=== PATIENT | female | born 1980 | race Caucasian/White ===

== ENCOUNTER 2018-01-08 05:31 | Day surgery (SDC) | payer OTHER ==
[2018-01-04 10:52] LABS: HEMATOCRIT 41.2 % (36.0-47.0); MEAN CORPUSCULAR HEMOGLOBIN 30.2 pg (27.0-33.4); MEAN CORPUSCULAR HGB CONC 33.9 g/dL (32.0-36.0); MEAN CORPUSCULAR VOLUME 89 fl (80-97); PLATELET COUNT 213 10^3/uL (150-450); RED BLOOD COUNT 4.64 10^6/uL (3.72-5.28); RED CELL DISTRIBUTION WIDTH 12.3 % (11.5-14.0); WHITE BLOOD COUNT 7.1 10^3/uL (4.0-10.5)
[2018-01-04 11:12] LABS: ANION GAP 12 (5-19); BLOOD UREA NITROGEN 11 mg/dL (7-20); CALCIUM 10.2 mg/dL (8.4-10.2); CARBON DIOXIDE 24 mmol/L (22-30); CHLORIDE 105 mmol/L (98-107); GLUCOSE 80 mg/dL (75-110); POTASSIUM 4.1 mmol/L (3.6-5.0); SODIUM 141.2 mmol/L (137-145)
[~2018-01-08 05:31] MED LIST: CEFAZOLIN SODIUM 2 GM in DEXTROSE 5%-WATER 100 ML IV PRN; CEFAZOLIN SODIUM 2 GM in NORMAL SALINE 100 ML IV PRN; LACTATED RINGERS 1000 ML IV PRN; LIDOCAINE 0.5% INJ-PF (5 MG/ML) 50 ML SDV SUBCUT PRN
[2018-01-08] MEDS ORDERED: FENTANYL CITRATE INJ/PF 250 MCG/5 ML AMPULE ONE (06:45)
[2018-01-08] MEDS ORDERED: FENTANYL CITRATE INJ/PF 100 MCG/2 ML AMPUL ONE (06:46)
[2018-01-08] MEDS ORDERED: PROPOFOL INJ 200 MG/20 ML VIAL IV ONE (06:46)
[2018-01-08] MEDS ORDERED: MIDAZOLAM 2 MG/2 ML INJ ONE (06:46)
[2018-01-08] MEDS ORDERED: ACETAMINOPHEN 100 ML IV ONE (06:46)
[2018-01-08] MEDS ORDERED: BUPIVACAINE HCL 0.25 % INJ/PF (2.5 MG/1 ML) 30 ML VIAL ONE (07:12)
[2018-01-08] MEDS ORDERED: METHYLENE BLUE 50 MG/10 ML AMPULE ONE (07:12)
[2018-01-08] MEDS ORDERED: CEFAZOLIN INJ 1 GM VIAL ONE (08:10)
[2018-01-08] MEDS ORDERED: FENTANYL CITRATE INJ/PF 100 MCG/2 ML AMPUL IV PRN ×4 (08:28→10:34)
[2018-01-08] MEDS ORDERED: MEPERIDINE HCL/PF INJ 25 MG/1 ML DISP.SYRIN IV PRN (08:28)
[2018-01-08] MEDS ORDERED: PROMETHAZINE HCL INJ 25 MG/1 ML VIAL IV PRN ×2 (08:28→10:35)
[2018-01-08] MEDS ORDERED: DIPHENHYDRAMINE HCL 50 MG/ML VIAL IV PRN (08:28)
[2018-01-08] MEDS: FENTANYL CITRATE INJ/PF 100 MCG/2 ML AMPUL ONE ×4 (10:33→11:05)
[2018-01-08] MEDS ORDERED: MORPHINE SULFATE 10 MG/ML INJ IV PRN (10:33)
[2018-01-08] MEDS ORDERED: ONDANSETRON HCL INJ/PF 4 MG/2 ML SDV IV PRN (10:34)
[2018-01-08] MEDS ORDERED: KETOROLAC TROMETHAMINE INJ/PF 30 MG/1 ML SDV ONE (10:41)
[2018-01-08] MEDS ORDERED: OXYCODONE HCL IR 5 MG TABLET PO PRN (10:58)
[2018-01-08] MEDS ORDERED: NORMAL SALINE 1000 ML 1,000 ML IV ONE (11:30)
[2018-01-08] MEDS: OXYCODONE-ACETAMINOPHEN 5-325 MG TABLET PO PRN ×2 (12:27→16:55)
--- NOTE | 2018-01-08 13:09 | OPERATIVE REPORT E ---
Operative Report NAME: ALEXI FRANK : 1980 AGE: 37Y DATE OF SURGERY: 01/08/2018 ROOM: PREOPERATIVE DIAGNOSES: 1. Chronic pelvic pain. 2. Abnormal uterine bleeding unresponsive to medical therapy. 3. Previous x3. 4. Previous history of X-flap vertical midline. POSTOPERATIVE DIAGNOSES: 1. Chronic pelvic pain. 2. Abnormal uterine bleeding unresponsive to medical therapy. 3. Previous x3. 4. Previous history of X-flap vertical midline. OPERATION: 1. Robotic total laparoscopic hysterectomy. 2. Bilateral salpingectomy remnants. 3. Cystoscopy. 4. Extensive lysis of adhesions. SURGEON: Lucille Walters M.D. ASSITSANT: Ren Salazar M.D. ANESTHESIA: General. ESTIMATED BLOOD LOSS: 100. INTRAVENOUS FLUIDS: 1800 mL normal saline. URINE OUTPUT: 300 mL clear urine. COMPLICATIONS: None. INDICATION: The patient is a 37-year-old 3, para 3-0-0-3, with a history of previous x3 and X-flap vertical midline who presented to my clinic initially with chronic pelvic pain and abnormal uterine bleeding unresponsive to previous medical therapy and also history of HONEY-2. Patient desired definitive surgical management, declined all other interventions including a LEEP or a cold knife conization for her HONEY-2. Patient was counseled extensively on the procedure risks including, but not limited to bleeding, infection, injury to surrounding organs and tissue including bowel or bladder, and the need of exploratory laparotomy in case there is bleeding at the surgical procedure that cannot be identified or controlled via laparoscopy. The patient agreed and consented to the procedure, understood and agreed to proceed to the operating room. FINDINGS: Extensive inferior abdominal wall omental adhesions to the anterior abdominal wall. The uterus was seen to be soft, boggy, consistent with adenomyosis. The right ovary appeared to be normal. There was a right paratubal cyst. The patient was status post bilateral tubal ligation from previous procedures. Left fallopian tube remnants appeared to be normal and the left ovary appeared to be slightly enlarged with multiple follicular cysts. PROCEDURE: The patient was taken to the operating room. General anesthesia was induced without difficulty. The patient was placed in the dorsal lithotomy position, was sterilely prepped and draped in the usual sterile fashion. A Yelena Hugger was placed and obtained control of core body temperature. A Siegel catheter was placed in the bladder. A single-tooth tenaculum was placed in the cervix to grasp the cervix. The cervix was dilated with a cervical os dilator. The uterus was sounded to approximately 7-8 cm. Two folrmp-op-barfb stitches around 3 and 9 o'clock were placed for anchoring sutures before placing the VCare and the VCare manipulator was attached to the uterus with a cervical ring and anchored to the stitches on the right and left. A weighted speculum single-tooth tenaculum were removed. A horizontal supraumbilical incision was performed after insertion of the Veress needle on the left upper quadrant at Sewell's point for insufflation of the abdomen. Of course, the Veress needle was introduced after performing the appropriate drop test and the abdomen was insufflated with carbon dioxide until pneumoperitoneum was established. The Veress needle was of course removed and the supraumbilical incision was slightly extended. The 12 mm trocar inserted and placed in the abdominal cavity. Visualization of the abdomen revealed the above findings. The right lower quadrant port was inserted under direct visualization. It was free of omentum adhesions. The right upper quadrant medical office assistant port was inserted under direct visualization. The left lower port was not inserted at this time due to anterior omental adhesions. At this point, anterior omental adhesions were taken down. A separate camera was introduced via one of the other ports and using LigaSure cauterizing and transecting all the omental fat attaching it as close as to the anterior abdominal wall. Bowel was freed over the omental adhesions. After taking down all the extensive anterior omental adhesions and performing the lysis of adhesions, the robot camera was introduced back into the main port and then the left lower quadrant port was introduced under direct visualization. At this point, the robot was docked and then attention was paid to the ureters bilaterally and the ureters were both well away from the surgical field at all times. At this point, visualizing the ureters and making sure they were away from the surgical field, the right fimbriated end of the fallopian tube was grasped, cauterized and transected along the mesosalpinx all the way to the cornual region. The right round ligament was cauterized and transected all the way down to the level of the uterus. A right bladder flap was created on the contralateral side which was performed in a similar fashion where the fimbriated end of the fallopian tube was grasped, cauterized and transected along the mesosalpinx all the way to the cornual region. The left round ligament was cauterized and transected all the way down to the level of the uterus. The left side of the bladder flap was created and met the right side of the bladder flap. At this point, the bladder was pushed all the way down after appropriate dissection making sure it was far away from the colpotomy site. The left and right uterine blood vessels were cauterized appropriately and transected. At this point, the anterior colpotomy was performed circumscribing the cervix. After performing the anterior and posterior colpotomy and connecting them in a circumscribed fashion, the uterus was removed with the cervix and fallopian tube remnants. At this time, irrigation was performed. The vaginal cuff was completely intact and there was slightly oozing spots and those were cauterized with the bipolar. At this point, the vaginal cuff was closed with a V-Loc suture in a running fashion. FloSeal was applied on top of it. Both bilateral pelvic sidewalls were hemostatic. During the closure of the vaginal cuff, I asked Anesthesia to give methylene blue for the cystoscopy portion. Once the vaginal cuff closure was performed, FloSeal was applied to the vaginal cuff making sure the pelvic sidewalls and everything looked hemostatic. Attention was turned below to the cystoscopy portion. The cystoscope revealed completely normal ureters with blue *------* coming through both the right and left ureters with excellent flow of efflux bilaterally. Bladder integrity was visualized. There were no foreign bodies, injuries, or sutures identified in the bladder. Bubble sign was also identified and integrity of the bladder was completely normal. At this point, the cystoscope was removed. A sponge stick was inserted vaginally removing any residual blood clots and blood from the vaginal mucosa. A survey of the vaginal mucosa revealed a small posterior midline approximately 1 cm in diameter, vaginal mucosa laceration, a ddssbm-li-dwrrm stitch using a Vicryl 3-[address]1 was performed. Hemostasis was obtained. At this point after the trocars were removed and the abdomen was desufflated, all incisions were repaired and reapproximated. The supraumbilical incision was repaired with a UR-6 reapproximating fascia and then the skin was closed in a subcuticular fashion with a 4-0 Monocryl at all sites. Dermabond was applied on top of the incisions. The patient tolerated the procedure well. All sponge, lap and needle counts were correct x2. The patient did receive prophylactic IV antibiotics. The patient tolerated the procedure well and was taken to the recovery room in stable condition. DICTATING PHYSICIAN: Lucille Walters MD [id number] PHY#: [id number] ID: [id number] JOB#: [id number] ACCT: [id number] cc:Lucille Walters >
[2018-01-08] MEDS ORDERED: VECURONIUM BROMIDE INJ 10 MG VIAL IV ONE (13:37)
[2018-01-08] MEDS ORDERED: NEOSTIGMINE METHYLSULFATE 10 MG/10 ML VIAL ONE (13:37)
[2018-01-08] MEDS ORDERED: LIDOCAINE 2% INJ-PF (20 MG/ML) 2 ML AMPUL ONE (13:37)
[2018-01-08] MEDS ORDERED: ONDANSETRON HCL INJ/PF 4 MG/2 ML SDV ONE (13:37)
[2018-01-08] MEDS ORDERED: DEXAMETHASONE SOD PHOSPHATE INJ 4 MG/1 ML VIAL ONE (13:37)
[2018-01-08] MEDS ORDERED: GLYCOPYRROLATE INJ 0.4 MG/2 ML VIAL ONE (13:37)
[2018-01-08 16:31] VITALS: BP 115/59
== END 2018-01-08 18:20 | disposition home or self-care (01) ==
LOC: OROUT 05:31 → EDBD 07:30 → 2N 11:47 → OROUT 18:20
PROVIDERS: ATTEND Obstetrics & Gynecology
DX: G89.29 Other chronic pain (principal); R10.2 Pelvic and perineal pain; N83.8 Other noninflammatory disorders of ovary, fallopian tube and broad ligament; N93.9 Abnormal uterine and vaginal bleeding, unspecified; N87.1 Moderate cervical dysplasia; K66.0 Peritoneal adhesions (postprocedural) (postinfection); Z88.8 Allergy status to other drugs, medicaments and biological substances; Z88.5 Allergy status to narcotic agent; Z87.891 Personal history of nicotine dependence
CPT/HCPCS: 58571; S2900; 36415; 80048; 81025; 840; 85027; 86850; 86900; 86901; 88307; J0131; J0690; J1100; J1885; J2250; J2405; J2704; J3010; J3490; J7120; Q9968